=== PATIENT | male | born 1990 | race Caucasian/White ===

== ENCOUNTER 2020-08-15 20:15 | Inpatient (IN) | payer OTHER ==
[~2020-08-15] VITALS: Ht 182.9 cm; Wt 81.6 kg
== END 2020-08-18 10:00 | disposition home or self-care (01) | DRG 918 ==
LOC: ER 20:15 → EDBD 20:15 → ER 22:40 → SURG 08-16 11:26 → MEDI 08-16 11:26
PROVIDERS: ADMIT Internal Medicine; ATTEND Internal Medicine
PROC: 30233N1 Transfusion of Nonautologous Red Blood Cells into Peripheral Vein, Percutaneous Approach (ICD-10-PCS; principal; 2020-08-16)
DX: T40.1X3A Poisoning by heroin, assault, initial encounter (principal); S10.81XA Abrasion of other specified part of neck, initial encounter; D64.9 Anemia, unspecified; E86.0 Dehydration; E87.8 Other disorders of electrolyte and fluid balance, not elsewhere classified; F12.10 Cannabis abuse, uncomplicated; F14.10 Cocaine abuse, uncomplicated